=== PATIENT | male | born 1975 | race Two or more races ===

== ENCOUNTER 2024-11-03 09:20 | Day surgery (SDC) | payer OTHER, SELFPAY ==
[2024-11-01 07:14] VITALS: BMI 27.1
[2024-11-01 08:51] LABS: Alanine Aminotransferase 14 U/L (10-49); Albumin, Serum 4.6 gm/dL (3.5-5.0); Alkaline Phosphatase 64 U/L (46-116); Anion Gap 10 (7-16); Aspartate Amino Transferase 20 U/L (0-34); BUN/Creatinine Ratio 12 Ratio (12-20); Blood Urea Nitrogen 13 mg/dL (9-23); Calcium 9.7 mg/dL (8.3-10.6); Calcium (Corrected) 9.7 mg/dL (8.5-10.1); Carbon Dioxide 25.9 mMol/L (20.0-31.0); Chloride 105 mMol/L (98-107); Creatinine (Component) 1.1 mg/dL (0.6-1.3); Estimated Creatinine Clearance 89.2 mL/min (>60); Globulin 2.3 gm/dL (2.3-3.5); Glucose 96 mg/dL (74-106); Osmolality,Calculated 281 (275-295); Potassium 4.1 mMol/L (3.4-5.1); Sodium 141 mMol/L (136-145); Total Protein 6.9 gm/dL (5.7-8.2); eGFR > 60 See Note
--- NOTE | 2024-11-02 14:37 | SUR.PREOP ---
Pt stated has seen Dr Maciel costume maker a yr ago, records requested from [facility] and [facility].
[2024-11-03] VITALS (13 sets, daily range): BP systolic 133–159; BP diastolic 88–103; PULSE 46–68; RESP 12–23; TEMP 36.2–36.6; O2SAT 98–100; BMI 27.7
[2024-11-03] MEDS: OXYMETAZOLINE NAS SPRY 0.05% 15 ML BTL NASAL (10:50)
[2024-11-03] MEDS: RINGERS LACTATED 1000 ML 1,000 ML 20 ML IV (10:52)
--- NOTE | 2024-11-03 11:55 | SUR.PHASEI ---
pt received from OR in recovery bay 1. pt obtunded, breathing unlabored on 8l oxymask, oral airway in place. v/s stable. pt dressing to nasal area cdi. report received from Kalpana DAVISON and Hans GLYNN.
--- NOTE | 2024-11-03 11:56 | PD.SUROPNT ---
Date of Procedure 11/03/24 Pre Op Diagnosis Nasal septal deviation with obstruction Bilateral inferior turbinate hypertrophy Post Op Diagnosis Nasal septal deviation with obstruction Bilateral inferior turbinate hypertrophy Left intranasal polyp Procedure Intranasal septoplasty Bilateral submucous resection of inferior turbinates Left intranasal polypectomy Findings Deviated nasal septum to the left grade 2 with enlarged inferior turbinates and a moderate size polyp emanating out of the left maxillary sinus. Procedure Description Indications: This 48-year-old male with chronic nasal congestion with the above findings. Treatment options were discussed as well as surgical risks and he wished to proceed. Patient was transferred to the operative suite where he was anesthetized intubated and sterilely draped. Timeout was performed. The inferior turbinates as well as the nasal septum were injected with 1% lidocaine with 1-100,000 dilution epinephrine. Approximately 6 cc total were used. A left inferior turbinate was then reduced in a submucosal plane with the 2.9 mm turbinate shaver blade. Dissection was performed on insertion and withdrawal. Similar procedure was performed on the right side. Entry sites were later cauterized with suction cautery. Caudal rim incision was then made on the left side of the septum mucosal flap elevated off the septal cartilage and bone. Perpendicular plate was from the quadrangular cartilage with a freer elevator and the deviated perpendicular plate was removed in a piecemeal fashion with a Arie forceps. The septum return closer to midline. There was no if spurring inferiorly. Mucosal flaps were reapproximated with a 4-0 plain gut suture in a quilting type stitch. This was used the close the rim incision as well. And further inspection there is a polyp found to be emanating into the left middle meatus. This was removed in a piecemeal fashion as a polyp was found to be extruding out of the maxillary sinus. This was sent for specimen. Patient was then awakened and taken the recovery room in stable condition Anesthesia GETA Pathology / specimen Other (Left nasal polyp) Pathology comment: Left nasal polyp Estimated Blood Loss 10 Surgeon Scottie Paredes DO Surgical Staff Operation Date: 11/03/24 12:15 <No data on this case meets the specified criteria>
[2024-11-03] MEDS: MORPHINE SULF INJ 10 MG/ML VIAL 3 MG IV (12:11)
--- NOTE | 2024-11-03 12:15 | SUR.PHASEI ---
pt able to tolerate oral fluids without difficulty swallowing or nausea/vomiting.
[2024-11-03] MEDS: fentaNYL CIT INJ 50 mCg/ML AMP 2ML 25 MCG IV ×2 (12:33→12:48)
--- NOTE | 2024-11-03 13:30 | SUR.PHASEII ---
pt awake and alert, breathing unlabored on room air. v/s stable. pt dressing to nasal area changed at bedside scant blood noted. pt able to ambulate to wheelchair with steady gait. d/c instructions given with Selene in room, all questions answered. pt d/c via wheelchair with all belongings.
== END 2024-11-03 13:30 | disposition home or self-care (01) ==
PROVIDERS: Anesthesiology; PCP Family Medicine; Referring Provider Otolaryngology; Visit Provider Otolaryngology
PROC: (CPT 30520; principal; 2024-11-03 12:00)
DX: J34.2 Deviated nasal septum (principal); J33.9 Nasal polyp, unspecified; J34.3 Hypertrophy of nasal turbinates; J01.90 Acute sinusitis, unspecified; J32.9 Chronic sinusitis, unspecified
CPT/HCPCS: 30520; 30140; 36415; 80053; A4217; A4649; J0131; J1100; J2250; J2270; J2405; J2704; J3010; J3490; J7040; J7120; A9270